=== PATIENT | male | born 1990 | race Caucasian/White ===

== ENCOUNTER 2019-01-06 05:28 | Emergency (ER) | payer SELFPAY ==
[~2019-01-06] VITALS: Ht 180.3 cm; Wt 86.6 kg
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
[2019-01-06] MEDS ORDERED: TETANUS AND DIPHTHERIA TOX/PF 0.5 ML VIAL. VAX IM ONE (05:45)
[2019-01-06] MEDS ORDERED: IOHEXOL 240 MG/ML 50ML VIAL. ONE (05:53)
[2019-01-06 05:54] VITALS: BP 160/89
[2019-01-06] MEDS ORDERED: IOHEXOL 350 MG/ML 100 ML VIAL. ONE (05:54)
[2019-01-06] MEDS ORDERED: IV RINGERS SOLUTION,LACTATED 1,000 ML IV SCH (06:00)
[2019-01-06] MEDS ORDERED: IOHEXOL 300 MG/ML 75 ML VIAL. IV ONE (06:00)
[2019-01-06] MEDS ORDERED: MORPHINE SULFATE 10 MG/ML SYRINGE. IV ONE (06:00)
[2019-01-06] MEDS ORDERED: FAMOTIDINE 20 MG/2 ML VIAL IVP ONE (06:00)
[2019-01-06] MEDS ORDERED: ONDANSETRON PF 4 MG/2 ML VIAL. IV ONE (06:00)
[2019-01-06] MEDS ORDERED: BACITRACIN ZINC TOPICAL OINT PACKET. TP ONE (06:00)
[2019-01-06 06:07] LABS: BASO % 0 % (0-3); EOS % 0 % (0-3); HEMATOCRIT 43.1 % (39.0-53.0); HEMOGLOBIN 14.6 g/dL (13.0-17.5); LYMPH # 1.5 x10^3/uL (1.0-4.8); LYMPH % 16 % (24-48); MEAN CORPUSCULAR HEMOGLOBIN 31 pg (25-35); MEAN CORPUSCULAR HGB CONC 34 g/dL (31-37); MEAN CORPUSCULAR VOLUME 92 fL (79-100); MONO # 0.6 x10^3/uL (0.0-1.1); MONO % 6 % (0-9); NEUT # 7.2 x10^3uL (1.8-7.7); NEUT % 77 % (31-73); PLATELET COUNT 148 x10^3/uL (140-400); RED BLOOD COUNT 4.67 x10^6/uL (4.30-5.70); RED CELL DISTRIBUTION WIDTH 13.5 % (11.5-14.5); WHITE BLOOD COUNT 9.4 x10^3/uL (4.0-11.0)
[2019-01-06 06:19] LABS: ALBUMIN 4.4 g/dL (3.4-5.0); CREATININE 1.4 mg/dL (0.7-1.3); DIRECT BILIRUBIN 0.2 mg/dL (0.0-0.2); GFR 59.5; POTASSIUM 3.8 mmol/L (3.5-5.1); TOTAL BILIRUBIN 0.7 mg/dL (0.2-1.0); TOTAL PROTEIN 7.4 g/dL (6.4-8.2)
[2019-01-06] MEDS ORDERED: DIPHTH,PERTUSS(ACELL),TET TOX 0.5 ML DISP.SYRIN. VAX IM ONE (06:30)
--- NOTE | 2019-01-06 06:41 | RAD ---
EXAM: CT HEAD WITHOUT IV CONTRAST CLINICAL HISTORY: COMPARISON: None. TECHNIQUE: Routine CT of the head without contrast. Soft tissues and bone windows were reviewed. PQRS compliance statement - One or more of the following individualized dose reduction techniques were utilized for this study: 1. Automated exposure control 2. Adjustment of the mA and/or kV according to patient size 3. Use of iterative reconstruction technique FINDINGS: There is no evidence of hemorrhage, mass or extra-axial fluid collection. Streeter-white differentiation is maintained with no evidence of edema. There is no mass effect or shift of the intracranial structures. The ventricles, basilar cisterns and cortical sulci are normal in size and configuration for the patients stated age. The cerebellum and brainstem are unremarkable. The calvarium demonstrates no evidence of fracture or focal lesion. There is normal aeration of the visualized paranasal sinuses and mastoid air cells. The visualized portions of the orbits are normal. IMPRESSION: No evidence for acute intracranial abnormality. EXAM: CT CERVICAL SPINE WITHOUT IV CONTRAST CLINICAL HISTORY: COMPARISON: None available. TECHNIQUE: Helical CT of the cervical spine was performed. Axial, coronal and sagittal reformatted images were also performed. PQRS compliance statement - One or more of the following individualized dose reduction techniques were utilized for this study: 1. Automated exposure control 2. Adjustment of the mA and/or kV according to patient size 3. Use of iterative reconstruction technique FINDINGS: Vertebral body heights are preserved. Intervertebral disc heights are preserved. No spondylolisthesis. No acute fracture. Trace bilateral pneumothorax. IMPRESSION: 1. No evidence for acute fracture or subluxation. 2. Trace bilateral apical pneumothoraces are seen.. Electronically signed by: Isaías Parks MD (01/06/2019 6:38 AM) [facility] [id number]
[2019-01-06] MEDS ORDERED: CONTRAST GIVEN MC PRN (06:45)
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
[2019-01-06] MEDS ORDERED: IOHEXOL 350 MG/ML 100 ML VIAL. IV ONE (07:00)
[2019-01-06] MEDS ORDERED: IOHEXOL 240 MG/ML 50ML VIAL. PO ONE (07:00)
[2019-01-06] MEDS ORDERED: MORPHINE SULFATE 4 MG/ML DISP.SYRIN. IV ONE ×2 (07:15→10:15)
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
--- NOTE | 2019-01-06 09:11 | EKG ---
[address] [address] Test Date: 2019-01-06 Test Time: 09:11:49 Pat Name: KING ORLANDO Department: Room: Gender: M Assistant Community Manager: JOSIAH : 1990 Requested By: TEMO COREY Order Number: [id number] Reading MD: Measurements Intervals [place] Rate: 78 P: 42 GA: 180 QRS: 8 QRSD: 100 T: 27 QT: 352 QTc: 405 Interpretive Statements SINUS RHYTHM R-S TRANSITION ZONE IN V LEADS DISPLACED TO THE RIGHT NO SPECIFIC ECG ABNORMALITIES RI6.01 No previous ECG available for comparison
== END 2019-01-06 10:13 | disposition short-term general hospital (02) ==
LOC: ER 05:28
DX: S32.402A Unspecified fracture of left acetabulum, initial encounter for closed fracture (principal); S51.812A Laceration without foreign body of left forearm, initial encounter; S30.1XXA Contusion of abdominal wall, initial encounter; S80.12XA Contusion of left lower leg, initial encounter; J93.83 Other pneumothorax; V48.5XXA Car driver injured in noncollision transport accident in traffic accident, initial encounter; Y93.I9 Activity, other involving external motion; Y92.488 Other paved roadways as the place of occurrence of the external cause; Y99.8 Other external cause status
CPT/HCPCS: 36415; 70450; 71046; 71275; 72125; 72170; 74019; 74177; 80048; 80076; 82150; 82550; 83690; 84484; 85025; 85610; 85730; 90471; 90715; 93005; 96374; 96375; 96376; 99291; J2270; J2405; J3490; J7120; Q9966; Q9967